=== PATIENT | female | born 1990 | race Caucasian/White ===

== ENCOUNTER 2017-01-03 14:19 | Emergency (ER) | payer SELFPAY | END 2017-01-03 15:40 | disposition home or self-care (01) | LOC: ER1 14:19 | DX: J40 Bronchitis, not specified as acute or chronic (principal); F17.210 Nicotine dependence, cigarettes, uncomplicated; Z90.49 Acquired absence of other specified parts of digestive tract | CPT/HCPCS: 87081; 87880; 99283 ==

== ENCOUNTER 2020-12-28 16:59 | Emergency (ER) | payer OTHER ==
[~2020-12-28 16:59] MED LIST: DEXILANT60 MG PO; LODINE CAP 300300 MG PO; NORCO 5-325 TA1 EACH PO; ZOFRAN ODT 4 MG4 MG PO
[2020-12-28 18:13] LABS: HEMOGLOBIN 11.3 gm/dl (12.3-15.3); RED BLOOD COUNT 4.38 M/UL (4.00-5.10); WHITE BLOOD COUNT 7.5 K/UL (4.5-11.0)
[2020-12-28 18:34] LABS: BUN/CREATININE RATIO 15 (0-10)
[2020-12-28] MEDS ORDERED: PREDNISONE20 MG PO (20:18)
[2020-12-28] MEDS ORDERED: HYDROXYCHLOROQ200 MG PO (20:18)
== END 2020-12-28 20:40 | disposition home or self-care (01) ==
LOC: ER1 16:59
PROVIDERS: Family Medicine
DX: U07.1 COVID-19 (principal); E66.01 Morbid (severe) obesity due to excess calories; Z68.38 Body mass index [BMI] 38.0-38.9, adult
CPT/HCPCS: 36415; 71045; 80053; 82550; 82553; 83605; 83874; 83880; 84484; 85025; 99285

== ENCOUNTER → 2021-06-15 | Outpatient (CLI) | payer OTHER ==
[~2021-06-15] MED LIST changes: +HYDROXYCHLOROQ200 MG PO; +PREDNISONE20 MG PO
== END ==
LOC: RAD 12:54
DX: J45.901 Unspecified asthma with (acute) exacerbation (principal)
CPT/HCPCS: 71046

== ENCOUNTER → 2021-11-27 | Outpatient (CLI) | payer OTHER ==
[2021-11-27 12:48] LABS: BORDETELLA PARAPERTUSSIS Not Detected (Not Detectd); BORDETELLA PERTUSSIS Not Detected (Not Detectd); CHLAMYDIA PNEUMONIAE Not Detected (Not Detectd); CORONAVIRUS HKU1 Not Detected (Not Detectd); CORONAVIRUS NL63 Not Detected (Not Detectd); CORONAVIRUS OC43 Not Detected (Not Detectd); CORONOAVIRUS 229E Not Detected (Not Detectd); HUMAN METAPNEUMOVIRUS Not Detected (Not Detectd); HUMAN RHINOVIRUS/ENTEROVIRUS Not Detected (Not Detectd); INFLUENZA A Not Detected (Not Detectd); INFLUENZA B Not Detected (Not Detectd); MYCOPLASMA PNEUMONIAE Not Detected (Not Detectd); PARAINFLUENZA VIRUS 1 Not Detected (Not Detectd); PARAINFLUENZA VIRUS 2 Not Detected (Not Detectd); PARAINFLUENZA VIRUS 3 Not Detected (Not Detectd); PARAINFLUENZA VIRUS 4 Not Detected (Not Detectd); RESPIRATORY SYNCYTIAL VIRUS Not Detected (Not Detectd)
[2021-11-27 16:58] LABS: SARS-CoV-2 DETECTED (Not Detectd)
== END ==
LOC: RAD 11:58
PROVIDERS: Internal Medicine
DX: U07.1 COVID-19 (principal)
CPT/HCPCS: 87633

== ENCOUNTER 2021-11-30 01:02 | Inpatient (IN) | payer OTHER ==
[~2021-11-30] VITALS: Ht 180.3 cm; Wt 120.2 kg
[2021-11-30 02:27] LABS: HEMOGLOBIN 12.7 gm/dl (12.3-15.3); RED BLOOD COUNT 4.8 M/UL (4.00-5.10); WHITE BLOOD COUNT 10.8 K/UL (4.5-11.0)
[2021-11-30 02:54] LABS: BUN/CREATININE RATIO 17 (0-10)
[2021-11-30] MEDS ORDERED: GLUCOPHAGE 500500 MG PO (11:23)
[2021-11-30] MEDS ORDERED: VITAMIN B-12100 MCG PO (11:24)
[2021-11-30] MEDS ORDERED: MULTIVITAMIN1 EACH PO (11:24)
[2021-11-30] MEDS ORDERED: LORATADINE10 MG PO (11:24)
[2021-11-30] MEDS ORDERED: ASPIRIN EC81 MG PO (11:25)
[2021-11-30] MEDS ORDERED: VITAMIN D21250 MCG PO (11:26)
[2021-12-01 02:25] LABS: HEMOGLOBIN 12.1 gm/dl (12.3-15.3); RED BLOOD COUNT 4.52 M/UL (4.00-5.10); WHITE BLOOD COUNT 10.1 K/UL (4.5-11.0)
[2021-12-01 02:39] LABS: BUN/CREATININE RATIO 16 (0-10)
[2021-12-02 04:16] LABS: HEMOGLOBIN 11.7 gm/dl (12.3-15.3); RED BLOOD COUNT 4.47 M/UL (4.00-5.10); WHITE BLOOD COUNT 8.4 K/UL (4.5-11.0)
[2021-12-02 04:49] LABS: BUN/CREATININE RATIO 20 (0-10)
[2021-12-03 07:17] LABS: HEMOGLOBIN 12.4 gm/dl (12.3-15.3); RED BLOOD COUNT 4.75 M/UL (4.00-5.10); WHITE BLOOD COUNT 9.7 K/UL (4.5-11.0)
[2021-12-03 07:47] LABS: BUN/CREATININE RATIO 21 (0-10)
[2021-12-03] MEDS ORDERED: ELIQUIS2.5 MG PO (10:21)
[2021-12-03] MEDS ORDERED: DECADRON6 MG PO (10:21)
[2021-12-03] MEDS ORDERED: XOPENEX1.25 MG/3 NEB (10:21)
== END 2021-12-03 20:22 | disposition home or self-care (01) | DRG 177 ==
LOC: ER1 01:02 → CDU 01:50 → MED SURG 4 06:27 → 3 EAST 14:19 → MED SURG 4 12-01 00:48
PROVIDERS: Emergency Medicine; Physician Assistant; ADMIT Internal Medicine
PROC: 8E0ZXY6 Isolation (ICD-10-PCS; principal; 2021-11-30)
PROC: XW033E5 Introduction of Remdesivir Anti-infective into Peripheral Vein, Percutaneous Approach, New Technology Group 5 (ICD-10-PCS; 2021-11-30)
PROC: 3E0333Z Introduction of Anti-inflammatory into Peripheral Vein, Percutaneous Approach (ICD-10-PCS; 2021-11-30)
DX: U07.1 COVID-19 (principal); J96.01 Acute respiratory failure with hypoxia; J12.82 Pneumonia due to coronavirus disease 2019; Q24.0 Dextrocardia; E66.2 Morbid (severe) obesity with alveolar hypoventilation; N39.0 Urinary tract infection, site not specified; J45.901 Unspecified asthma with (acute) exacerbation; T46.5X5A Adverse effect of other antihypertensive drugs, initial encounter; K21.9 Gastro-esophageal reflux disease without esophagitis; I10 Essential (primary) hypertension; R55 Syncope and collapse; E87.6 Hypokalemia; F41.0 Panic disorder [episodic paroxysmal anxiety]; E11.9 Type 2 diabetes mellitus without complications; F17.200 Nicotine dependence, unspecified, uncomplicated; Z79.4 Long term (current) use of insulin; Z90.49 Acquired absence of other specified parts of digestive tract; Z98.890 Other specified postprocedural states; Z83.3 Family history of diabetes mellitus; Z88.8 Allergy status to other drugs, medicaments and biological substances; Z79.52 Long term (current) use of systemic steroids; Z79.899 Other long term (current) drug therapy; Z79.01 Long term (current) use of anticoagulants; Z68.37 Body mass index [BMI] 37.0-37.9, adult
CPT/HCPCS: 36415; 36600; 71045; 80048; 80053; 80076; 81001; 82550; 82553; 82728; 82803; 82962; 83735; 83874; 83880; 84132; 84439; 84443; 84484; 84703; 85025; 85027; 85379; 85610; 85730; 86140; 87081; 87086; 87880; 93005; 94640; 94664; 94760; 96374; 96375; 99285; J0248; J0696; J1100; J1650; J2405; J7030; Q9967

== ENCOUNTER 2021-12-05 22:15 | Emergency (ER) | payer OTHER ==
[~2021-12-05 22:15] MED LIST changes: +ASPIRIN EC81 MG PO; +DECADRON6 MG PO; +ELIQUIS2.5 MG PO; +GLUCOPHAGE 500500 MG PO; +LORATADINE10 MG PO; +MULTIVITAMIN1 EACH PO; +VITAMIN B-12100 MCG PO; +VITAMIN D21250 MCG PO; +XOPENEX1.25 MG/3 NEB
[2021-12-05 23:06] LABS: HEMOGLOBIN 13.5 gm/dl (12.3-15.3); RED BLOOD COUNT 5.07 M/UL (4.00-5.10)
[2021-12-05 23:07] LABS: WHITE BLOOD COUNT 15.3 K/UL (4.5-11.0)
[2021-12-05 23:28] LABS: BUN/CREATININE RATIO 27 (0-10)
[2021-12-06] MEDS ORDERED: ATIVAN1 MG PO (01:03)
== END 2021-12-06 01:35 | disposition home or self-care (01) ==
LOC: ER1 22:15
PROVIDERS: Family Medicine
DX: R06.02 Shortness of breath (principal); R06.4 Hyperventilation; E11.9 Type 2 diabetes mellitus without complications; Z79.84 Long term (current) use of oral hypoglycemic drugs
CPT/HCPCS: 36600; 71046; 80053; 82550; 82553; 82803; 83874; 84484; 85025; 85379; 93005; 96374; 99285; J2060

== ENCOUNTER 2021-12-15 13:05 | Emergency (ER) | payer OTHER ==
[~2021-12-15 13:05] MED LIST changes: +ATIVAN1 MG PO
[2021-12-15 13:36] LABS: HEMOGLOBIN 12.3 gm/dl (12.3-15.3); RED BLOOD COUNT 4.68 M/UL (4.00-5.10); WHITE BLOOD COUNT 12.8 K/UL (4.5-11.0)
[2021-12-15 14:03] LABS: BUN/CREATININE RATIO 28 (0-10)
== END 2021-12-15 18:30 | disposition home or self-care (01) ==
LOC: ER1 13:05
PROVIDERS: Emergency Medicine; Physician Assistant
DX: R07.9 Chest pain, unspecified (principal); E11.9 Type 2 diabetes mellitus without complications; F41.9 Anxiety disorder, unspecified
CPT/HCPCS: 71045; 71260; 80053; 81001; 82550; 82553; 83874; 84484; 84703; 85025; 85379; 87799; 93005; 99285; Q9967

== ENCOUNTER 2021-12-20 12:51 | Emergency (ER) | payer OTHER ==
[2021-12-20 14:13] LABS: HEMOGLOBIN 13.3 gm/dl (12.3-15.3); RED BLOOD COUNT 4.9 M/UL (4.00-5.10); WHITE BLOOD COUNT 10.1 K/UL (4.5-11.0)
[2021-12-20 14:38] LABS: BUN/CREATININE RATIO 17 (0-10)
[2021-12-20] MEDS ORDERED: PHENERGAN 25 MG25 M1 PO (21:17)
[2021-12-21] MEDS ORDERED: PROTONIX 40 MG40 M1 PO (04:34)
[2021-12-21] MEDS ORDERED: CARAFATE1 GM PO (04:34)
[2021-12-21] MEDS ORDERED: PERCOCET 5/325 T1 EA PO (04:34)
== END 2021-12-21 05:57 | disposition home or self-care (01) ==
LOC: ER1 12:51
PROVIDERS: Family Medicine
DX: R07.9 Chest pain, unspecified (principal); F41.9 Anxiety disorder, unspecified; R11.2 Nausea with vomiting, unspecified; E11.9 Type 2 diabetes mellitus without complications; Z86.16 Personal history of COVID-19
CPT/HCPCS: 71045; 80053; 82550; 82553; 83690; 83874; 84484; 85025; 93005; 96374; 96375; 96376; 99285; J1885; J2405; Q9967

== ENCOUNTER → 2021-12-23 | Outpatient (CLI) | payer OTHER ==
[~2021-12-23] MED LIST changes: +CARAFATE1 GM PO; +PERCOCET 5/325 T1 EA PO; +PHENERGAN 25 MG25 M1 PO; +PROTONIX 40 MG40 M1 PO
== END ==
LOC: ECHO 12:58
DX: I10 Essential (primary) hypertension (principal); R00.0 Tachycardia, unspecified; R06.02 Shortness of breath; U09.9 Post COVID-19 condition, unspecified
CPT/HCPCS: ECHO; 93306

== ENCOUNTER 2022-01-04 20:14 | Emergency (ER) | payer OTHER ==
[2022-01-04] MEDS ORDERED: LOPRESSOR 50 MG50 MG GT (21:05)
[2022-01-04 21:50] LABS: HEMOGLOBIN 12.5 gm/dl (12.3-15.3); RED BLOOD COUNT 4.55 M/UL (4.00-5.10); WHITE BLOOD COUNT 12.2 K/UL (4.5-11.0)
[2022-01-04 22:12] LABS: BUN/CREATININE RATIO 27 (0-10)
== END 2022-01-04 23:58 | disposition home or self-care (01) ==
LOC: ER1 20:14
PROVIDERS: Family Medicine
DX: R55 Syncope and collapse (principal); R42 Dizziness and giddiness; F41.9 Anxiety disorder, unspecified; E11.9 Type 2 diabetes mellitus without complications; Z87.891 Personal history of nicotine dependence
CPT/HCPCS: 70450; 80053; 82550; 82553; 84484; 85025; 93005; 99284

== ENCOUNTER → 2022-01-05 | Outpatient (CLI) | payer OTHER ==
[~2022-01-05] MED LIST changes: +LOPRESSOR 50 MG50 MG GT
== END ==
LOC: HEART 5 12:15
DX: R42 Dizziness and giddiness (principal)

== ENCOUNTER 2022-01-11 22:45 | Emergency (ER) | payer OTHER ==
[2022-01-11 23:59] LABS: BUN/CREATININE RATIO 27 (0-10)
[2022-01-12 00:09] LABS: HEMOGLOBIN 11.9 gm/dl (12.3-15.3); RED BLOOD COUNT 4.38 M/UL (4.00-5.10); WHITE BLOOD COUNT 11.5 K/UL (4.5-11.0)
== END 2022-01-12 03:02 | disposition left against medical advice (07) ==
LOC: ER1 22:45
PROVIDERS: Family Medicine
DX: R07.9 Chest pain, unspecified (principal); E10.9 Type 1 diabetes mellitus without complications; I10 Essential (primary) hypertension; Z20.822 Contact with and (suspected) exposure to COVID-19
CPT/HCPCS: 71045; 80053; 82550; 82553; 84484; 85025; 93005; 99281; U0002

== ENCOUNTER 2022-01-12 11:09 | Emergency (ER) | payer OTHER ==
[2022-01-12 13:40] LABS: HEMOGLOBIN 12.1 gm/dl (12.3-15.3); RED BLOOD COUNT 4.43 M/UL (4.00-5.10)
[2022-01-12 13:42] LABS: WHITE BLOOD COUNT 8.5 K/UL (4.5-11.0)
[2022-01-12 14:02] LABS: BUN/CREATININE RATIO 28 (0-10)
== END 2022-01-12 16:43 | disposition home or self-care (01) ==
LOC: ER1 11:09
PROVIDERS: Family Medicine
DX: R07.89 Other chest pain (principal); Z79.899 Other long term (current) drug therapy; E11.9 Type 2 diabetes mellitus without complications
CPT/HCPCS: 71045; 80048; 82550; 82553; 84484; 85025; 93005; 99285

== ENCOUNTER 2022-02-15 14:29 | Emergency (ER) | payer OTHER ==
[2022-02-15 15:47] LABS: HEMOGLOBIN 12.4 gm/dl (12.3-15.3); RED BLOOD COUNT 4.5 M/UL (4.00-5.10); WHITE BLOOD COUNT 10.1 K/UL (4.5-11.0)
[2022-02-15 15:58] LABS: BUN/CREATININE RATIO 23 (0-10)
[2022-02-15] MEDS ORDERED: MECLIZINE HCL25 MG PO (19:44)
== END 2022-02-15 21:23 | disposition home or self-care (01) ==
LOC: ER1 14:29
PROVIDERS: Family Medicine
DX: R07.89 Other chest pain (principal); R42 Dizziness and giddiness; E11.9 Type 2 diabetes mellitus without complications; I10 Essential (primary) hypertension; Z90.49 Acquired absence of other specified parts of digestive tract
CPT/HCPCS: 71045; 80053; 81001; 82550; 82553; 84439; 84443; 84484; 84703; 85025; 93005; 99285

== ENCOUNTER → 2022-03-23 | Outpatient (CLI) | payer OTHER ==
[~2022-03-23] MED LIST changes: +MECLIZINE HCL25 MG PO
== END ==
LOC: HEART 5 03-08 11:30
DX: R07.9 Chest pain, unspecified (principal)

== ENCOUNTER 2022-04-12 00:07 | Emergency (ER) | payer OTHER ==
[2022-04-12 01:01] LABS: HEMOGLOBIN 11.9 gm/dl (12.3-15.3); RED BLOOD COUNT 4.4 M/UL (4.00-5.10); WHITE BLOOD COUNT 10.2 K/UL (4.5-11.0)
[2022-04-12 01:23] LABS: BUN/CREATININE RATIO 27 (0-10)
== END 2022-04-12 04:56 | disposition home or self-care (01) ==
LOC: ER1 00:07
PROVIDERS: Family Medicine
DX: R07.9 Chest pain, unspecified (principal); E11.9 Type 2 diabetes mellitus without complications; I10 Essential (primary) hypertension; F17.290 Nicotine dependence, other tobacco product, uncomplicated; Z20.822 Contact with and (suspected) exposure to COVID-19
CPT/HCPCS: 0240U; 71045; 80053; 82550; 82553; 83880; 84484; 85025; 85610; 93005; 99285

== ENCOUNTER 2022-05-15 22:35 | Emergency (ER) | payer OTHER ==
[2022-05-15 23:07] LABS: HEMOGLOBIN 12.5 gm/dl (12.3-15.3); RED BLOOD COUNT 4.6 M/UL (4.00-5.10)
[2022-05-15 23:37] LABS: BUN/CREATININE RATIO 26 (0-10)
== END 2022-05-16 02:52 | disposition home or self-care (01) ==
LOC: ER1 22:35
PROVIDERS: Physician Assistant
DX: R07.9 Chest pain, unspecified (principal); R06.02 Shortness of breath; M54.9 Dorsalgia, unspecified; E11.9 Type 2 diabetes mellitus without complications; Z86.16 Personal history of COVID-19
CPT/HCPCS: 80053; 81001; 82550; 82553; 83880; 84484; 84703; 85025; 85610; 85730; 93005; 96374; 96375; 99285; J2405; Q9967

== ENCOUNTER → 2022-05-25 | Outpatient (CLI) | payer OTHER | LOC: MRI 10:25 | DX: R42 Dizziness and giddiness (principal); H93.11 Tinnitus, right ear; H91.91 Unspecified hearing loss, right ear | CPT/HCPCS: 36415; 82565; 84520 ==

== ENCOUNTER 2022-06-07 10:24 | Emergency (ER) | payer OTHER ==
[2022-06-07 11:29] LABS: HEMOGLOBIN 12.9 gm/dl (12.3-15.3); RED BLOOD COUNT 4.76 M/UL (4.00-5.10); WHITE BLOOD COUNT 10.8 K/UL (4.5-11.0)
[2022-06-07 11:58] LABS: BUN/CREATININE RATIO 20 (0-10)
== END 2022-06-07 16:00 | disposition home or self-care (01) ==
LOC: ER1 10:24
PROVIDERS: Emergency Medicine
DX: R07.89 Other chest pain (principal); E11.9 Type 2 diabetes mellitus without complications; I10 Essential (primary) hypertension; Z90.49 Acquired absence of other specified parts of digestive tract
CPT/HCPCS: 71046; 80053; 82550; 82553; 84484; 84703; 85025; 85379; 93005; 96374; 99285; J1885; Q9967

== ENCOUNTER 2022-07-15 19:06 | Emergency (ER) | payer OTHER ==
[2022-07-15 19:54] LABS: HEMOGLOBIN 11.2 gm/dl (12.3-15.3); RED BLOOD COUNT 4.06 M/UL (4.00-5.10); WHITE BLOOD COUNT 11.3 K/UL (4.5-11.0)
[2022-07-15 20:46] LABS: BUN/CREATININE RATIO 28 (0-10)
== END 2022-07-16 01:13 | disposition home or self-care (01) ==
LOC: ER1 19:06
PROVIDERS: Emergency Medicine
DX: R07.9 Chest pain, unspecified (principal); R00.2 Palpitations; E11.9 Type 2 diabetes mellitus without complications; Z79.84 Long term (current) use of oral hypoglycemic drugs
CPT/HCPCS: 71045; 80053; 82550; 82553; 84484; 85025; 93005; 99285

== ENCOUNTER → 2022-07-28 | Outpatient (CLI) | payer OTHER | LOC: LAB 11:05 | DX: R50.9 Fever, unspecified (principal); Z20.822 Contact with and (suspected) exposure to COVID-19 | CPT/HCPCS: U0002 ==